=== PATIENT | female | born 1985 | race American Indian/Alaskan Native ===

== ENCOUNTER 2017-06-17 07:41 | Emergency (ER) | payer MEDICAID ==
[2017-06-17 07:47] VITALS: BMI 23.9
[2017-06-17 07:48] VITALS: BP 107/70; PULSE 72; TEMP 98.7; O2SAT 100
--- NOTE | 2017-06-17 08:50 | ED PDOC ---
HPI: Female Pain Time Seen by Provider: 06/17/17 08:24 Chief Complaint (Nursing): Female Genitourinary History Per: Patient History/Exam Limitations: no limitations Onset/Duration Of Symptoms: Gradual (today) Current Symptoms Are (Timing): Still Present Severity: Mild Quality Of Discomfort: Cramping Associated Symptoms: denies: Fever, Chills, Nausea, Vomiting, Diarrhea, Back Pain, Chest Pain, Constipation Alleviating Factors: None Additional History Per: Patient Additional Complaint(s): Pt whom is approx 16 weeks preg. c.o abdominal cramping and pain when urination. Patient denies vaginal bleeding. LMP 02/08/17 . nml care Abnormal Vaginal Bleeding: No Past Medical History Reviewed: Historical Data, Nursing Documentation, Vital Signs Vital Signs: Last Vital Signs Temp 98.7 F 06/17/17 07:47 Pulse 72 06/17/17 07:47 Resp 18 06/17/17 07:47 BP 107/70 06/17/17 07:47 Pulse Ox 100 06/17/17 07:47 - Medical History PMH: No Chronic Diseases - Surgical History Surgical History: Back Surgery - Family History Family History: States: No Known Family Hx - Living Arrangements Living Arrangements: With Family - Social History Current smoker - smoking cessation education provided: No - Immunization History Hx Tetanus Toxoid Vaccination: No Hx Influenza Vaccination: No Hx Pneumococcal Vaccination: No - Home Medications Home Medications: Ambulatory Orders Medication Instructions Recorded Ciprofloxacin/Ciprofloxa HCl 500 mg PO BID #14 tbs 07/15/14 [Cipro Xr] Fluconazole [Diflucan] 150 mg PO ONCE #1 tab 07/15/14 Metronidazole [Metrogel] 60 gm TP ONCE 5 Days 07/15/14 Doxylamine/Pyridoxine HCl (B6) 1 each PO QPM PRN #20 tablet. 04/10/17 [Braeden Us 10-10 mg Tablet] Vit Calc,Iron,Folic 1 each PO DAILY #30 tablet 04/10/17 [ Vitamins] - Allergies Allergies/Adverse Reactions: Allergies Allergy/AdvReac Type Severity Reaction Status Date / Time No Known Allergies Allergy Verified 07/15/14 20:00 Review of Systems ROS Statement: Except As Marked, All Systems Reviewed And Found Negative Constitutional: Negative for: Fever, Chills Cardiovascular: Negative for: Chest Pain, Palpitations Respiratory: Negative for: Cough, Shortness of Breath Gastrointestinal: Negative for: Nausea, Abdominal Pain, Diarrhea Genitourinary Female: Positive for: Dysuria, Frequency, Pelvic Pain. Negative for: Hematuria, Vaginal Discharge, Vaginal Bleeding Musculoskeletal: Negative for: Neck Pain Neurological: Negative for: Weakness, Numbness Physical Exam - Reviewed Nursing Documentation Reviewed: Yes Vital Signs Reviewed: Yes - Physical Exam Appears: Positive for: Well, No Acute Distress Head Exam: Positive for: ATRAUMATIC, NORMAL INSPECTION, NORMOCEPHALIC Eye Exam: Positive for: Normal appearance, EOMI, PERRL Neck: Positive for: Normal, Painless ROM, Supple Cardiovascular/Chest: Positive for: Regular Rate, Rhythm Respiratory: Positive for: Normal Breath Sounds Gastrointestinal/Abdominal: Positive for: Bowel Sounds, Soft, Other (gravid c/w dates). Negative for: Tenderness Back: Positive for: Normal Inspection. Negative for: L CVA Tenderness, R CVA Tenderness Extremity: Positive for: Normal ROM. Negative for: Tenderness, Pedal Edema Neurologic/Psych: Positive for: Alert, curator herbarium II-XII, Oriented. Negative for: Motor/Sensory Deficits - Laboratory Results Result Diagrams: 06/17/17 08:53 06/17/17 08:53 - ECG O2 Sat by Pulse Oximetry: 100 Pulse Ox Interpretation: Normal - Progress ED Course And Treament: repeat abd exam reveals no tenderness. Trans vag us FINDINGS: Single live intrauterine fetus with a mean gestational age of roughly 18 weeks and 5 days. heart motion observed at 153 beats per minute. Presentation is variable. Placenta is anterior. anatomic survey is not performed. Ovaries not identified. No free fluid the pelvis. IMPRESSION: Single live intrauterine fetus as discussed above. 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 Disposition - Clinical Impression Clinical Impression: Abdominal pain during - Patient ED Disposition Is Patient to be Admitted: No Counseled Patient/Family Regarding: Studies Performed, Diagnosis, Need For Followup - Disposition Referrals: Palma Nayak MD [Primary Care Provider] - Disposition: Routine/Home Disposition Time: 11:30 Condition: GOOD Instructions: Abdominal Pain in (ED)
[2017-06-17 09:22] LABS: BASO % 0.4 % (0.0-2.0); EOS # 0.1 K/uL (0.0-0.7); EOS % 1.3 % (0.0-4.0); HEMOGLOBIN 10.4 g/dL (12.0-16.0); LYMPH # 1.5 K/uL (1.0-4.3); LYMPH % 18.3 % (20.0-40.0); MEAN CELL VOLUME 78.7 fl (81.0-99.0); MEAN CORPUSCULAR HEMOGLOBIN 25.1 pg (27.0-31.0); MEAN CORPUSCULAR HGB CONC 31.8 g/dL (33.0-37.0); MEAN PLATELET VOLUME 9.5 fl (7.2-11.7); MONO # 0.7 K/uL (0.0-0.8); MONO % 8.2 % (0.0-10.0); NEUT # 5.9 K/uL (1.8-7.0); NEUT % 71.8 % (50.0-75.0); RBC 4.15 Mil/uL (3.80-5.20); WHITE BLOOD COUNT 8.2 K/uL (4.8-10.8)
[2017-06-17 09:25] LABS: SQUAMOUS EPITHIAL 1 /hpf (0-5); URINE BILIRUBIN NEGATIVE (NEGATIVE); URINE BLOOD NEGATIVE (NEGATIVE); URINE CLARITY SLIGHTY-CLOUDY (Clear); URINE COLOR YELLOW (YELLOW); URINE GLUCOSE (UA) NEG (Normal); URINE LEUKOCYTE ESTERASE NEG Leu/uL (Negative); URINE NITRATE NEGATIVE (NEGATIVE); URINE PROTEIN NEGATIVE (NEGATIVE); URINE UROBILINOGEN 0.2-1.0 mg/dL (0.2-1.0)
[2017-06-17 09:31] LABS: ALBUMIN 3.4 g/dL (3.5-5.0); ALT/SGPT 21 U/L (9-52); AST/SGOT 18 U/L (14-36); BLOOD UREA NITROGEN 8 mg/dl (7-17); CALCIUM 8.5 mg/dL (8.4-10.2); GFR AFRICAN-AMERICAN > 60; GFR NON-AFRICAN AMERICAN > 60; LIPASE 184 U/L (23-300)
--- NOTE | 2017-06-17 11:16 | US ---
PROCEDURE: HISTORY: pelvic pain 16 weeks COMPARISON: TECHNIQUE: FINDINGS: Single live intrauterine fetus with a mean gestational age of roughly 18 weeks and 5 days. heart motion observed at 153 beats per minute. Presentation is variable. Placenta is anterior. anatomic survey is not performed. Ovaries not identified. No free fluid the pelvis. IMPRESSION: Single live intrauterine fetus as discussed above.
[2017-06-17 12:41] VITALS: RESP 12
== END 2017-06-17 12:41 | disposition home or self-care (01) ==
LOC: H.ER 07:41
DX: O26.892 Other specified pregnancy related conditions, second trimester (principal); Z3A.16 16 weeks gestation of pregnancy

== ENCOUNTER 2017-10-30 23:17 | Emergency (ER) | payer MEDICAID ==
[2017-10-31 00:12] VITALS: BMI 29.0
--- NOTE | 2017-10-31 02:07 | OBHP ---
Datetime: 10/31/2017 00:34 IP Adm Impression: Term, intrauterine ; No Active Labor; Intact Membranes IP Admit Plan: Discharge home Admit Comment, IP Provider: 32 yo at 38.2 weeks GA based on US on 05/12/17 not c/w LMP 7, EDC 11/12/17 presents with increased CTX q5 min since 8 pm last night. Reports +fm. Denies LOF, VB . Pt is GBS neg. Denies headache, dizziness, nausea, vomiting, chest pain, dypsnea, fever, chills. PNC: [facility] and was seen by Dr. Matta today. Has appointment on 11/06/17. [facility] ART REV"D PNL: A+, antibody neg, hiv neg(05/12/17), RPR neg(04/2017), rubella immune, hbsag neg, GBS neg, pap neg(05/19/17), quantiferon gold negative(06/07/17). Pt did not take TDAP vaccine. past obhx: x3 ( pt reports all 3 deliveries had to be augmented because of her hx of scoliosi s), 1 SAB at 11 weeks in 2005 Past gynhx: pap negative on 05/19/17, denies hx STI. pmhx: scoliosis pshx: scoliosis repair in 1988 social hx: denies EtOH use, smoking cigarettes or recreational drug use family hx: denies family hx HTN, DMII, CAD or CA. medications: PNV allergies: NKDA. Assessment: 32 yo IUP @ 38.2 weeks GA, not in labor Plan: heart tracing reassuring stable vitals. Pelvis exam shows closed cervix. Discharge home with labor precaution. Advised to go to f/u appointments. All questions and concerns were addressed. Pt was seen and examined with on-call OB hospitalist Dr. Roula Moreno, PGY1' OB Hospitalistnote..With PGY1, I saw and examined this patinet. Agree with note. MAHNDO Extremities - PN: Normal Abdomen - PN: Normal Lungs - PN: Normal Heart - PN: Normal Neurologic - PN: Normal HEENT - PN: Normal General - PN: Normal Presentation-Admit: Vertex FHR - Baseline A Provider: 140s Membranes, Provider: Intact Contraction Comments Provider: occ Comments, ACOG Physical Exam: Pelvic exam: closed cervix Bedside US: vertex presentation. Pool Provider: Negative IP Hx Assessment: The History has been Reviewed and is Current EGA AdmitDate IP: 38.2 Vital Signs Provider: Reviewed; Within Normal Limits IP Chief Complaint: Uterine contractions NICHD Variability Prov Fetus A: Moderate 6-25bpm NICHD Accel Fetus A IP Provider: [id number] FHR Category Provider Fetus A: Category I NICHD Decel Fetus A IP Provider: None Dilatation, Provider: 0 Effacement, Provider: 0
--- NOTE | 2017-10-31 02:09 | OBDCSUM ---
Datetime: 10/31/2017 00:27 Discharged to, Provider: Home Follow up at, Provider: [facility] Disch Instr Activity: Normal activity Disch Instr Diet: Regular Discharge Diagnosis, Provider: Neeraj Labor - Undelivered Discharge Time: 10/31/2017 00:29 Follow up in weeks, Provider: SCHEDULEDON Monday11/06/17 Disch Referrals: None
[2017-10-31 06:06] VITALS: BP 117/69; PULSE 103; O2SAT 100
== END 2017-10-31 00:35 | disposition home or self-care (01) ==
LOC: H.EROB2 23:17
DX: O47.1 False labor at or after 37 completed weeks of gestation (principal); Z3A.38 38 weeks gestation of pregnancy; O26.93 Pregnancy related conditions, unspecified, third trimester; R10.2 Pelvic and perineal pain